=== PATIENT | male | born 1945 | race Asian ===

== ENCOUNTER 2020-07-07 15:13 | Emergency (ER) | payer OTHER, SELFPAY ==
[~2020-07-07] VITALS: Ht 160 cm; Wt 65.8 kg
[2020-07-07 15:32] VITALS: BP_SYST 133
[2020-07-07 16:13] LABS: BASOPHILS % (AUTO) 0.3 % (0.0-2.0); EOSINOPHILS # (AUTO) 0.1 K/uL (0.0-0.4); EOSINOPHILS % (AUTO) 1.3 % (0.0-4.0); HEMATOCRIT 44.6 % (36-54); LYMPHOCYTES # (AUTO) 1.7 K/uL (1.0-5.5); LYMPHOCYTES % (AUTO) 20.1 % (20.5-51.5); MEAN CORPUSCULAR HEMOGLOBIN 31 pg (27-31); MEAN CORPUSCULAR HGB CONC 34 % (32-36); MEAN CORPUSCULAR VOLUME 93 fL (79.0-98.0); MONOCYTES # (AUTO) 0.7 K/uL (0.0-1.0); MONOCYTES % (AUTO) 8.1 % (1.7-9.3); NEUTROPHILS % (AUTO) 70.2 % (40.0-70.0); PLATELET COUNT (AUTO) 214 K/uL (130-430); RED BLOOD CELL COUNT(AUTO) 4.82 MIL/uL (4.2-6.2); RED CELL DISTRIBUTION WIDTH 12.8 % (9.0-15.0); WHITE BLOOD COUNT (AUTO) 8.5 K/uL (4.8-10.8)
[2020-07-07 16:45] LABS: ANION GAP 7 (5-15); CALCIUM 9.5 mg/dL (8.4-11.0); CHLORIDE 100 mmol/L (98-107); CREATININE 1.41 mg/dL (0.55-1.30); GLUCOSE 215 mg/dL (70-99); POTASSIUM 4.3 mmol/L (3.5-5.1); SODIUM SERUM 136 mmol/L (136-145); UREA NITROGEN, BLOOD 25 mg/dL (8-21)
[2020-07-07 16:54] LABS: ALANINE AMINOTRANSFERASE 39 U/L (12-78); ALBUMIN 3.6 g/dL (3.4-4.8); ASPARTATE AMINOTRANSFERASE 20 U/L (10-37); TOTAL BILIRUBIN 0.5 mg/dL (0.0-1.0)
[2020-07-07 16:58] VITALS: BP_SYST 133
== END 2020-07-07 18:35 | disposition home or self-care (01) ==
LOC: SED 15:13
DX: K21.9 Gastro-esophageal reflux disease without esophagitis (principal); Z20.828 Contact with and (suspected) exposure to other viral communicable diseases
CPT/HCPCS: 36415; 71045; 80053; 84484; 85025; 85610-TC; 85730-TC; 93005; 99285

== ENCOUNTER 2020-07-08 10:03 | Inpatient (IN) | payer OTHER, SELFPAY ==
[~2020-07-08] VITALS: Ht 160 cm; Wt 65.8 kg
[2020-07-08 10:21] VITALS: BP_SYST 159
--- NOTE | 2020-07-08 10:23 | NUR ---
Patient triaged and placed in waiting room. VSS and patient appears in no acute distress at this time. Accompanied by self , awaiting available bed, and MD notified of need for MSE.
--- NOTE | 2020-07-08 10:24 | NUR ---
Dr Leiva evaluating patient in the triage room
--- NOTE | 2020-07-08 10:25 | NUR ---
Pt brought by self, A&Ox4, pt presents to ER with upper abd pain and episodes of black stool, denies N/V, skin pink and warm, cap refill <3, VSS, afebrile, pt was seen yesterday.
[2020-07-08] MEDS ORDERED: PANTOPRAZOLE SODIUM 80 MG in NS 100 ML IV ONE (10:45)
[2020-07-08 12:18] LABS: BASOPHILS % (AUTO) 0.5 % (0.0-2.0); EOSINOPHILS # (AUTO) 0.1 K/uL (0.0-0.4); EOSINOPHILS % (AUTO) 1.8 % (0.0-4.0); HEMATOCRIT 44.7 % (36-54); HEMOGLOBIN 15.2 g/dL (14.0-18.0); LYMPHOCYTES # (AUTO) 1.7 K/uL (1.0-5.5); LYMPHOCYTES % (AUTO) 24.1 % (20.5-51.5); MEAN CORPUSCULAR HEMOGLOBIN 31 pg (27-31); MEAN CORPUSCULAR HGB CONC 34 % (32-36); MEAN CORPUSCULAR VOLUME 93 fL (79.0-98.0); MONOCYTES # (AUTO) 0.6 K/uL (0.0-1.0); NEUTROPHILS # (AUTO) 4.6 K/uL (1.8-7.7); NEUTROPHILS % (AUTO) 65.6 % (40.0-70.0); PLATELET COUNT (AUTO) 224 K/uL (130-430); RED BLOOD CELL COUNT(AUTO) 4.83 MIL/uL (4.2-6.2); RED CELL DISTRIBUTION WIDTH 12.9 % (9.0-15.0); WHITE BLOOD COUNT (AUTO) 6.9 K/uL (4.8-10.8)
[2020-07-08 12:38] LABS: INR 1.3 (0.80-1.20); PROTHROMBIN TIME 12.8 SECS (9.5-12.5)
[2020-07-08 12:47] LABS: ANION GAP 8 (5-15); CALCIUM 9.6 mg/dL (8.4-11.0); CHLORIDE 100 mmol/L (98-107); GLUCOSE 162 mg/dL (70-99); POTASSIUM 4.8 mmol/L (3.5-5.1); SODIUM SERUM 137 mmol/L (136-145); UREA NITROGEN, BLOOD 19 mg/dL (8-21)
[2020-07-08 13:01] LABS: ALANINE AMINOTRANSFERASE 39 U/L (12-78); ALBUMIN 3.9 g/dL (3.4-4.8); ASPARTATE AMINOTRANSFERASE 23 U/L (10-37); BILIRUBIN,DIRECT 0.2 mg/dL (0.0-0.3); LIPASE 73 U/L (73-393); TOTAL BILIRUBIN 0.9 mg/dL (0.0-1.0)
[2020-07-08] MEDS ORDERED: NACL 0.9% 1,000 ML IV SCH (13:45)
[2020-07-08] MEDS ORDERED: NACL 0.9% 1,000 ML IV ONE (13:45)
[2020-07-08] MEDS ORDERED: ONDANSETRON HCL 4 MG/2 ML VIAL IVP PRN (16:00)
[2020-07-08] MEDS ORDERED: ACETAMINOPHEN 325 MG TABLET PO PRN (16:00)
--- NOTE | 2020-07-08 16:20 | NUR ---
Dr Patton evaluating patient in the triage room
[2020-07-08] MEDS: PANTOPRAZOLE SODIUM 40 MG/VIAL (PROTONIX) IVP SCH (21:00)
[2020-07-08] MEDS: METOPROLOL TARTRATE 25 MG TABLET PO SCH (21:00)
--- NOTE | 2020-07-08 21:53 | NUR ---
Patient to ER hallway 3 for evaluation. Side rails up. Report given to JENS Freeman.
--- NOTE | 2020-07-08 22:00 | NUR ---
Pt resting in bed. VSS. Will continue to monitor.
--- NOTE | 2020-07-08 23:00 | NUR ---
# 20 gauge angiocath placed to RAC. Use of asceptic technique. Opsite placed over site. Flushed with 10 cc of normal saline. No evidence of infiltration noted. Patient tolerated well.
[2020-07-09] MEDS: NACL 0.9% 1,000 ML IV SCH ×3 (01:04→22:00)
[2020-07-09] MEDS: cefTRIAXone 1 GM in D5W 50 ML IV SCH ×2 (01:08→18:03)
[2020-07-09] MEDS ORDERED: PANTOPRAZOLE SODIUM 40 MG/VIAL (PROTONIX) ONE ×3 (01:09→21:58)
--- NOTE | 2020-07-09 03:46 | NUR ---
pt in hallway bed, resting with eyes closed. Responds to verbal stimuli. IVF and meds continued.
--- NOTE | 2020-07-09 06:30 | NUR ---
Report from Lydia COLINDRES
--- NOTE | 2020-07-09 06:39 | NUR ---
Patient resting in [facility]. A&Ox4, patient asked "when is my endoscopy"?
[2020-07-09] MEDS: PANTOPRAZOLE SODIUM 40 MG/VIAL (PROTONIX) IVP SCH ×2 (07:08→22:03)
[2020-07-09 07:22] LABS: BASOPHILS % (AUTO) 0.3 % (0.0-2.0); EOSINOPHILS # (AUTO) 0.1 K/uL (0.0-0.4); EOSINOPHILS % (AUTO) 1.3 % (0.0-4.0); HEMATOCRIT 39.6 % (36-54); HEMOGLOBIN 13.6 g/dL (14.0-18.0); LYMPHOCYTES # (AUTO) 1.8 K/uL (1.0-5.5); LYMPHOCYTES % (AUTO) 19.1 % (20.5-51.5); MEAN CORPUSCULAR HEMOGLOBIN 32 pg (27-31); MEAN CORPUSCULAR HGB CONC 34 % (32-36); MEAN CORPUSCULAR VOLUME 92 fL (79.0-98.0); MONOCYTES % (AUTO) 10.1 % (1.7-9.3); NEUTROPHILS # (AUTO) 6.6 K/uL (1.8-7.7); NEUTROPHILS % (AUTO) 69.2 % (40.0-70.0); PLATELET COUNT (AUTO) 197 K/uL (130-430); RED BLOOD CELL COUNT(AUTO) 4.31 MIL/uL (4.2-6.2); RED CELL DISTRIBUTION WIDTH 12.7 % (9.0-15.0); WHITE BLOOD COUNT (AUTO) 9.5 K/uL (4.8-10.8)
[2020-07-09 08:25] LABS: ALANINE AMINOTRANSFERASE 30 U/L (12-78); ALBUMIN 3.1 g/dL (3.4-4.8); ANION GAP 9 (5-15); ASPARTATE AMINOTRANSFERASE 14 U/L (10-37); CALCIUM 8.4 mg/dL (8.4-11.0); CHLORIDE 105 mmol/L (98-107); CREATININE 1.01 mg/dL (0.55-1.30); GLUCOSE 167 mg/dL (70-99); POTASSIUM 4.8 mmol/L (3.5-5.1); SODIUM SERUM 139 mmol/L (136-145); TOTAL BILIRUBIN 0.5 mg/dL (0.0-1.0); UREA NITROGEN, BLOOD 21 mg/dL (8-21)
[2020-07-09 08:52] LABS: TOTAL IRON BIND. CAPACITY 259 ug/dL (250-450)
[2020-07-09] MEDS: METOPROLOL TARTRATE 25 MG TABLET PO SCH ×2 (09:00→21:00)
--- NOTE | 2020-07-09 09:30 | NUR ---
Dr Mariano at bedside discussing treatment with PT.
[2020-07-09] MEDS ORDERED: SIMETHICONE 40 MG/0.6 ML ML ONE (10:27)
[2020-07-09] MEDS: fentaNYL CITRATE/PF 100 MCG/2 ML AMP ONE ×2 (10:47→10:56)
[2020-07-09] MEDS: MIDAZOLAM HCL 5 MG/5 ML VIAL ONE ×2 (10:47→10:56)
--- NOTE | 2020-07-09 10:50 | NUR ---
Patient to GI with staff via nisha
[2020-07-09] MEDS ORDERED: SOD FERRIC GLUC COMPLEX/SUC 125 MG in NS 100 ML IV SCH (11:00)
[2020-07-09] MEDS ORDERED: DIATR MEGLU/DIATRIZ SOD 30 ML SOLUTION PO ONE (11:19)
--- NOTE | 2020-07-09 11:43 | NUR ---
PT RETURNED FROM EGD AND PLACED BACK TO HALLWAY. ALERT AND ORIENTED X3.
--- NOTE | 2020-07-09 13:23 | NUR ---
Patient sitting up in [facility][email or web address]
--- NOTE | 2020-07-09 13:48 | NUR ---
Patient will be admitted to care of DR. CARNEY. Admitted to MS unit. Will go to room 101B . Belongings list completed. Complete and up to date summary report printed. SBAR report to be given at bedside with opportunity for questions.
[2020-07-09 14:53] VITALS: BP_SYST 122
[2020-07-09] MEDS ORDERED: SYN50 PO (15:30)
[2020-07-09] MEDS ORDERED: LISI-209 PO (15:30)
[2020-07-09] MEDS ORDERED: MELO15TA13 PO (15:30)
[2020-07-09] MEDS ORDERED: LISI2.5T48 PO (15:30)
[2020-07-09] MEDS ORDERED: MULT-1117 PO (15:30)
[2020-07-09] MEDS ORDERED: UBID400C6 PO (15:30)
[2020-07-09] MEDS ORDERED: OMEG1CAP98 PO (15:30)
[2020-07-09] MEDS ORDERED: VITD400 PO (15:30)
[2020-07-09] MEDS ORDERED: LIP40 PO (15:30)
[2020-07-10] VITALS: BP_SYST 123
[2020-07-10] MEDS ORDERED: PANTOPRAZOLE SODIUM 40 MG/VIAL (PROTONIX) ONE (08:00)
--- NOTE | 2020-07-10 08:00 | NUR ---
Denies any abdominal pain , tolerate full liquid diet , educated patient on bland diet , medication plan of care verbalized understanding.
[2020-07-10] MEDS: PANTOPRAZOLE SODIUM 40 MG/VIAL (PROTONIX) IVP SCH (08:01)
[2020-07-10] MEDS: METOPROLOL TARTRATE 25 MG TABLET PO SCH (08:02)
[2020-07-10 08:08] VITALS: BP_SYST 153
[2020-07-10] MEDS ORDERED: ACET-2634 PO (09:22)
[2020-07-10] MEDS ORDERED: PRO40 PO (09:22)
[2020-07-10 09:44] VITALS: BP_SYST 134
--- NOTE | 2020-07-10 10:00 | NUR ---
D/C Patient Patient given medication reconciliation form and D/C instructions. Exit Care provided. Patient verbalized understanding. MD discussed with patient the results and treatment provided. Ambulatory with steady gait for discharge to home. Patient in stable condition, ID band removed. IV catheter removed, intact and dressing applied, no active bleeding. E Rx TYLENOL EXTRA STRENGHT, PANTOPRASOLEof given. Patient educated on pain management, DIET. All belongings sent with patient.
--- NOTE | 2020-07-10 10:15 | NUR ---
Discharge home accompanied by the daughter with all the belongings taken
== END 2020-07-10 10:15 | disposition home or self-care (01) | DRG 368 ==
LOC: SED 10:03 → STU 13:44 → SMU 07-09 13:42
PROVIDERS: ADMIT Internal Medicine; ATTEND Internal Medicine
PROC: 0DB68ZX Excision of Stomach, Via Natural or Artificial Opening Endoscopic, Diagnostic (ICD-10-PCS; principal; 2020-07-09 11:00)
DX: K20.91 Esophagitis, unspecified with bleeding (principal); K26.4 Chronic or unspecified duodenal ulcer with hemorrhage; E78.5 Hyperlipidemia, unspecified; M19.90 Unspecified osteoarthritis, unspecified site; I10 Essential (primary) hypertension; E03.9 Hypothyroidism, unspecified; K29.70 Gastritis, unspecified, without bleeding; Z20.828 Contact with and (suspected) exposure to other viral communicable diseases
CPT/HCPCS: 36415; 43239; 76376; 80048; 80053; 80076; 83540-TC; 83550-TC; 83605; 83690-TC; 84484; 85025; 85610-TC; 85730-TC; 86886; 86900; 86901; 87081; 88305; 88312; 88313; 93005; 96365; 99285; C9113; G0378; J0696; J2250; J2916; J3010; J7030; J7060; Q9964